=== PATIENT | female | born 1970 | race African-American/Black ===

== ENCOUNTER → 2016-09-25 | Outpatient (CLI) | payer MEDICARE, MEDICAID ==
[~2016-09-25] MED LIST: ALPR1TAB2 PO; AMIT75TA2 PO; GABA-488 PO; ONDA8TAB6 PO; OXYC30TA80 PO; PANT40TA2 PO; PRD20T PO; PREG75CA PO; QUET200T PO; SUCR1TAB36 PO
--- NOTE | 2016-09-25 15:22 | Diagnostic Imaging Report ---
PROCEDURE: MRI left upper extremity without contrast. TECHNIQUE: Multiplanar, multisequence non contrast-enhanced MRI of the left upper extremity was accomplished. INDICATION: Left shoulder pain. FINDINGS: No os acromiale. No Hill-Sachs deformity. There is mild subchondral cystic change in the anterior aspect of the humeral head. The acromioclavicular joint demonstrates capsular hypertrophy with minimal inferior osteophyte component. However, the capsule appears to be prominent inferiorly projecting into the supraspinatus myotendinous junction with mild impression seen. There is minimal edema along the subdeltoid bursa. Minimal signal abnormality in the distal supraspinatus and infraspinatus tendons is suggestive of mild tendinosis. The subscapularis tendon appears normal. The long head biceps tendon is within its groove. The glenoid labrum appear grossly unremarkable. The muscle bulk and signal around the shoulder is normal. IMPRESSION: 1. Acromioclavicular capsular hypertrophy with mild impression along the underlying myotendinous junction of the supraspinatus. 2. Slight increased signal in the distal supraspinatus and infraspinatus tendons suggestive of mild tendinosis. No significant tear. Dictated by: Dictated on workstation # [id number]
== END ==
LOC: RAD 13:47
PROVIDERS: ATTEND Nurse Practitioner Family
DX: R93.7 Abnormal findings on diagnostic imaging of other parts of musculoskeletal system (principal); M25.512 Pain in left shoulder
CPT/HCPCS: 73221

== ENCOUNTER → 2017-03-13 | Outpatient (CLI) | payer MEDICARE, MEDICAID ==
--- NOTE | 2017-03-13 12:06 | Diagnostic Imaging Report ---
PROCEDURE: MR imaging of the brain without contrast. TECHNIQUE: Multiplanar, multisequence MR imaging of the brain was performed without contrast. INDICATION: Headache. Blurred vision. Fainting episodes. History of Chiari malformation. COMPARISON: No prior studies are available for comparison. FINDINGS: The diffusion sequence demonstrates no abnormal restriction to suggest acute infarct or other diffusion abnormality. There is crowded appearance of the structures around the lower aspect of the brainstem near the foramen magnum and cerebellar tonsillar herniation of about 8 mm below the level of the foramen magnum compatible with Chiari 1 malformation. There is however no signal abnormality in the visualized portions of the upper aspect of the spinal cord, the brainstem or the cerebellar tonsils. Very minimal periventricular T2 hyperintense signal abnormalities are seen in the white matter suggestive of mild manifestations of chronic microvascular ischemic changes, commonly seen at the patient's age. The central vascular flow-voids are preserved. No hydrocephalus. The internal auditory canals and inner ear structures appear unremarkable. The pituitary gland is normal in size. No hypothalamic or pineal region mass. The orbits appear symmetric. The frontal sinuses are hypoplastic. Minimal mucosal thickening in the ethmoidal air cells and along the nasal turbinates seen. IMPRESSION: There is Chiari 1 malformation findings with herniation of the cerebellar tonsils about 8 mm below the level of the foramen magnum. Dictated by: Dictated on workstation # [id number]
== END ==
LOC: RAD 09:43
PROVIDERS: ATTEND Orthopaedic Surgery Orthopaedic Surgery of the Spine
DX: Q07.00 Arnold-Chiari syndrome without spina bifida or hydrocephalus (principal)
CPT/HCPCS: 70551